=== PATIENT | female | born 2000 | race Caucasian/White ===

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

== ENCOUNTER 2019-06-18 11:14 | Emergency (ER) | payer MEDICAID, OTHER ==
[~2019-06-18] VITALS: Ht 157.5 cm; Wt 68.0 kg
[2019-06-18 11:32] VITALS: BP 125/75
--- NOTE | 2019-06-18 11:32 | NUR ---
PATIENT AMBULATED TO BED 7
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
[2019-06-18 12:27] VITALS: BP 123/76
== END 2019-06-18 12:26 | disposition home or self-care (01) ==
LOC: MED 11:14
DX: S31.109A Unspecified open wound of abdominal wall, unspecified quadrant without penetration into peritoneal cavity, initial encounter (principal); W34.00XA Accidental discharge from unspecified firearms or gun, initial encounter; Y93.89 Activity, other specified; Y92.89 Other specified places as the place of occurrence of the external cause; Y99.8 Other external cause status
CPT/HCPCS: 99283